=== PATIENT | female | born 1955 | race Native Hawaiian/Other Pacific Islander ===

== ENCOUNTER 2020-05-07 12:05 | Emergency (ER) | payer OTHER ==
[~2020-05-07] VITALS: Ht 152.4 cm; Wt 99.8 kg
[2020-05-07 13:03] LABS: PLATELET COUNT 172 K/uL (152-353)
[2020-05-07 13:12] LABS: POTASSIUM 3.8 mmol/L (3.6-5.2)
[2020-05-07 14:05] VITALS: BP 105/51; TEMP 98.9
== END 2020-05-07 14:08 | disposition home or self-care (01) ==
LOC: ED 12:05
PROVIDERS: Hospitalist
DX: U07.1 COVID-19 (principal); J06.9 Acute upper respiratory infection, unspecified; R50.9 Fever, unspecified
CPT/HCPCS: 36415; 80053; 85027; 87502; 87635; 87651; 96360; 96365; 96375; 99284; 99285; J0696; J1100; U00003